=== PATIENT | male | born 1955 | race Caucasian/White ===

== ENCOUNTER → 2019-02-20 12:10 | Outpatient (CLI) | payer MEDICARE, SELFPAY ==
[2019-02-20 12:58] LABS: International Normalized Ratio 1.1; Prothrombin Time (Protime)PT. 13.7 SECONDS (11.7-14.9)
== END ==
PROVIDERS: Referring Provider Internal Medicine Cardiovascular Disease; Visit Provider Internal Medicine Cardiovascular Disease
DX: I51.3 Intracardiac thrombosis, not elsewhere classified (principal); I25.10 Atherosclerotic heart disease of native coronary artery without angina pectoris; I65.22 Occlusion and stenosis of left carotid artery; D68.59 Other primary thrombophilia
CPT/HCPCS: 84484; 85610